=== PATIENT | female | born 2000 | race Native Hawaiian/Other Pacific Islander ===

== ENCOUNTER 2021-10-31 09:32 | Outpatient (CLI) | payer SELFPAY ==
[2021-10-31 12:05] LABS: Basophils % (Auto) 0.2 % (0.0-1.8); Eosinophils # (Auto) 0.1 K/mm3 (0.0-0.4); Eosinophils % (Auto) 1.5 % (0.0-4.3); Hematocrit 39.1 % (30.3-42.9); Hemoglobin 12.8 gm/dl (10.1-14.3); Lymphocytes # (Auto) 2.5 K/mm3 (1.2-5.4); Lymphocytes % (Auto) 32.3 % (13.4-35.0); Mean Corpuscular HGB Conc 33 % (30-34); Mean Corpuscular Volume 82 fl (79-97); Monocytes # (Auto) 0.6 K/mm3 (0.0-0.8); Monocytes % (Auto) 8.2 % (0.0-7.3); Platelet Count 267 K/mm3 (140-440); Red Blood Count 4.76 M/mm3 (3.65-5.03)
[2021-10-31 12:17] LABS: Alanine Aminotransferase 21 units/L (7-56); Albumin 4.7 g/dL (3.9-5); Blood Urea Nitrogen 11 mg/dL (7-17); Calcium 9.5 mg/dL (8.4-10.2); Chol/HDL Ratio 2.78 %; HDL Cholesterol 70 mg/dL (40-59); Hemolysis Index 11; LDL Cholesterol,Direct 115 mg/dL (50-130)
[2021-10-31 12:31] LABS: BUN/Creatinine Ratio 16
[2021-11-03 15:23] LABS: Vitamin D, 25-OH, D2 11 ng/mL
== END 2021-10-31 09:33 | disposition home or self-care (01) ==
LOC: LABHHL 09:32
PROVIDERS: ATTEND Internal Medicine
DX: E55.9 Vitamin D deficiency, unspecified (principal)
CPT/HCPCS: 36415; 80053; 80061; 82306; 84443; 85025